=== PATIENT | female | born 1965 | race Caucasian/White ===

== ENCOUNTER 2022-05-08 05:41 | Day surgery (SDC) | payer OTHER ==
[~2022-05-08] VITALS: Ht 162.6 cm; Wt 77.2 kg
[~2022-05-08 05:41] MED LIST: CITA10TA99 PO; FAMO20 PO; FLUT16H NASAL; MONT-35 PO
[2022-05-08] MEDS ORDERED: SODIUM CHLORIDE 0.9% 1,000 ML IV ONE (06:30)
[2022-05-08] MEDS ORDERED: SODIUM CHLORIDE 0.9% 1,000 ML ONE (06:32)
[2022-05-08 06:45] LABS: COVID AG,FIA SOURCE NASAL SWAB
[2022-05-08] MEDS ORDERED: BUDE10.26 IH (07:01)
[2022-05-08] MEDS ORDERED: MULT-1203 PO (07:03)
[2022-05-08] MEDS ORDERED: ASCO500 PO (07:03)
[2022-05-08] MEDS ORDERED: OMEG-144 PO (07:05)
[2022-05-08] MEDS ORDERED: CALC-1038 PO (07:06)
[2022-05-08] MEDS ORDERED: MAGN300C PO (07:08)
[2022-05-08] MEDS ORDERED: ZINC220T4 PO (07:08)
[2022-05-08] MEDS ORDERED: MIDAZOLAM HCL 5 MG/ML VIAL ONE (07:31)
[2022-05-08] MEDS ORDERED: FentaNYL CITRATE PF 100 MCG/2 ML VIAL ONE (07:31)
[2022-05-08] MEDS ORDERED: MethylPREDNISolone SOD SUCC 125 MG/2 ML VIAL ONE (09:19)
[2022-05-08] MEDS ORDERED: MethylPREDNISolone SOD SUCC 125 MG/2 ML VIAL IVP ONE (09:30)
[2022-05-08] MEDS ORDERED: OXYGEN THERAPY IH SCH (20:00)
== END 2022-05-08 11:45 | disposition home or self-care (01) ==
LOC: SURGERY 05:41
PROVIDERS: ATTEND Internal Medicine Critical Care Medicine
DX: J38.4 Edema of larynx (principal); B37.0 Candidal stomatitis; F41.9 Anxiety disorder, unspecified; K21.9 Gastro-esophageal reflux disease without esophagitis; Z98.890 Other specified postprocedural states; Z79.899 Other long term (current) drug therapy
CPT/HCPCS: 31623; 88112; 87206; 87101; 87220; 87015; 87070; 88305; 88312; 31624; 71045; 87426; J3010; J2930; J2250; J7030; C9803

== ENCOUNTER 2023-11-15 06:43 | Day surgery (SDC) | payer OTHER ==
[~2023-11-15] VITALS: Ht 162.6 cm; Wt 77.3 kg
[~2023-11-15 06:43] MED LIST changes: +ASCO500 PO; +BUDE10.26 IH; +CALC-1038 PO; -FLUT16H NASAL; +FLUT16SP NASAL; +MAGN300C PO; +MULT-1203 PO; +OMEG-144 PO; +ZINC220T4 PO
[2023-11-15] MEDS ORDERED: AMLO2.5T96 PO (07:18)
[2023-11-15] MEDS ORDERED: OMEP10 PO (07:18)
[2023-11-15] MEDS ORDERED: SODIUM CHLORIDE 0.9% 1,000 ML ONE (07:28)
[2023-11-15] MEDS ORDERED: FentaNYL CITRATE PF 100 MCG/2 ML VIAL ONE (07:36)
[2023-11-15] MEDS ORDERED: MIDAZOLAM HCL 2 MG/2 ML VIAL ONE (07:36)
[2023-11-15] MEDS ORDERED: SODIUM CHLORIDE 0.9% 1,000 ML IV ONE (08:00)
[2023-11-15 09:30] VITALS: PULSE 55; RESP 18; O2SAT 97
[2023-11-15] MEDS ORDERED: MethylPREDNISolone SOD SUCC 125 MG/2 ML VIAL IVP ONE (09:30)
[2023-11-15] MEDS ORDERED: MethylPREDNISolone SOD SUCC 125 MG/2 ML VIAL ONE (09:47)
[2023-11-15] MEDS ORDERED: OMEG-135 PO (11:28)
== END 2023-11-15 11:05 | disposition home or self-care (01) ==
LOC: SURGERY 06:43
PROVIDERS: ATTEND Internal Medicine Critical Care Medicine
DX: J38.4 Edema of larynx (principal); B37.0 Candidal stomatitis; Z79.899 Other long term (current) drug therapy
CPT/HCPCS: 31623; 87206; 87101; 87220; 87070; 88108; 88305; 31624; 71045; 87015; J3010; J2250; J2930; J7030